=== PATIENT | female | born 1950 | race Caucasian/White ===

== ENCOUNTER 2018-06-28 14:30 | Outpatient (CLI) | payer MEDICARE ==
--- NOTE | 2018-06-28 17:05 | MRI ---
NONCONTRAST MRI LUMBAR SPINE: 06/28/18 HISTORY: Lumbar radiculopathy, left sided sciatica. Left hip and low back pain for quite some time now. COMPARISON: None available. There are extrarenal pelves seen bilaterally. Retroperitoneal structures otherwise demonstrate a wilfred sly normal MRI appearance. The conus medullaris is normal in appearance and terminates at the T12-L1 level. Scattered Schmorl's nodes are seen in the lower thoracic and visualized upper lumbar spine. L1-2 level: There is no significant disc bulge or disc herniation. Central spinal canal and neural fo ramina are patent. L2-3 level: There is loss of intervertebral disc height. There is a broad based disc osteophyte compl ex and mild facet hypertrophic changes with ligamentous thickening. There is resultant mild narrowing of the central spinal canal with mild right and minimal left sided neural foraminal narrowing. L3-4 level: There is a mild disc osteophyte complex. There is ligamentous thickening and facet hypert rophic changes. Resultant mild narrowing of the central spinal canal. The neural foramina at this lev el are patent. There are facet degenerative changes at this level. L4-5 level: There is loss of intervertebral disc height. There is a broad based disc osteophyte compl ex present. Facet hypertrophic changes and ligamentous thickening are noted. There is mild narrowing of the central spinal canal with mild bilateral neural foraminal narrowing. L5-S1 level: There is no disc bulge or disc herniation. The central spinal canal and neural foramina are patent at this level. IMPRESSION: Mild multilevel degenerative changes of the lumbar spine. POS: KRISTY
== END 2018-06-28 14:31 | disposition home or self-care (01) ==
LOC: SCSMRI 14:30
PROVIDERS: ATTEND Orthopaedic Surgery
DX: M47.26 Other spondylosis with radiculopathy, lumbar region (principal); M54.32 Sciatica, left side
CPT/HCPCS: 72148

== ENCOUNTER 2019-08-01 15:15 | Outpatient (CLI) | payer MEDICARE ==
--- NOTE | 2019-08-01 15:37 | MMO ---
Bilateral MAMMO Bilat Screen [facility]. CLINICAL HISTORY: Patient is 69 years old and is seen for screening. The patient has no family history of breast cancer. The patient has no personal history of cancer. VIEWS: The views performed were: bilateral craniocaudal with tomosynthesis and bilateral mediolateral oblique with tomosynthesis. FILMS COMPARED: The present examination has been compared to prior imaging studies performed at [facility] on 05/03/2016, and at [facility] on 05/22/2007, 05/27/2008 and 06/19/2011. This study has been interpreted with the assistance of computer-aided detection. MAMMOGRAM FINDINGS: There are scattered fibroglandular densities. There are stable benign appearing calcifications seen in both breasts. There are also vascular calcifications. There are no suspicious masses, suspicious calcifications, or new areas of architectural distortion. IMPRESSION: THERE IS NO MAMMOGRAPHIC EVIDENCE OF MALIGNANCY. A ROUTINE FOLLOW-UP MAMMOGRAM IN 1 YEAR IS RECOMMENDED. THE RESULTS OF THIS EXAM WERE SENT TO THE PATIENT. ACR BI-RADS Category 2 - Benign finding MAMMOGRAPHY NOTE: 1. A negative mammogram report should not delay a biopsy if a dominant of clinically suspicious mass is present. 2. Approximately 10% to 15% of breast cancers are not detected by mammography. 3. Adenosis and dense breasts may obscure an underlying neoplasm. Reported by: DIOR BERRY MD Electonically Signed: [id number]
== END 2019-08-01 15:16 | disposition home or self-care (01) ==
LOC: BICMAMMO 15:15
PROVIDERS: ATTEND Nurse Practitioner Family
DX: Z12.31 Encounter for screening mammogram for malignant neoplasm of breast (principal)
CPT/HCPCS: 77063; 77067

== ENCOUNTER 2020-07-20 13:00 | Outpatient (CLI) | payer MEDICARE ==
--- NOTE | 2020-07-20 14:09 | MRI ---
MRI lumbar spine noncontrast: HISTORY: Lumbar radiculopathy. Degenerative disc disease. Back pain after fall from flower bed 3 years ago. COMPARISON: 06/28/2018 FINDINGS: Appropriate T1 marrow signal intensity of the lumbar vertebra. Lumbar spine vertebral body heights ar e maintained. No fracture. Stable chronic Schmorl's nodes along the superior endplate and inferior endplate of L1 and L2. No significant STIR hyperintensity to suggest ligamentous injury or vertebral body edema. There is edematous change involving bilateral facet joints at L4-L5. The degree of edema has progressed since the previous exam. Appropriate signal intensity of the visualized paraspinal muscles and solid organs. Conus medullaris terminates at the mid T12 level. T12-L1:Adequate disc hydration. No posterior disc abnormality. No significant central canal stenosis or significant neural foraminal narrowing. L1-L2:Adequate disc hydration. No posterior disc abnormality. No significant central canal stenosis o r significant neural foraminal narrowing. L2-L3:Disc desiccation with severe loss of disc space height. Broad-based disc bulge, ligamentum flav um thickening and facet hypertrophy result in mild central canal stenosis. Mild right neural foraminal narrowing. Patent left neural foramen. L3-L4:Adequate disc hydration. No significant loss of disc space height. Broad-based disc bulge, liga mentum flavum thickening and facet hypertrophy result in mild central canal stenosis. Patent bilateral neural foramina. L4-L5:Disc desiccation with moderate loss of disc space height. Broad-based disc bulge, ligamentum fl avum thickening and facet hypertrophy result in mild central canal stenosis. Mild bilateral neural foraminal narrowing. L5-S1:Adequate disc hydration. No posterior disc abnormality. No significant central canal stenosis o r significant neural foraminal narrowing. IMPRESSION: 1. No fracture. 2. Redemonstration of multilevel degenerative changes of the lumbar spine. Transcribed Date/Time: 07/20/2020 2:24 PM
== END 2020-07-20 13:01 | disposition home or self-care (01) ==
LOC: SCSMRI 13:00
PROVIDERS: ATTEND Neurological Surgery
DX: M51.16 Intervertebral disc disorders with radiculopathy, lumbar region (principal); M47.26 Other spondylosis with radiculopathy, lumbar region
CPT/HCPCS: 72148

== ENCOUNTER 2020-09-08 10:46 | Outpatient (CLI) | payer MEDICARE ==
--- NOTE | 2020-09-08 11:37 | BD ---
EXAM: DEXA bone density examination HISTORY: 70-year-old postmenopausal female for screening COMPARISON: None FINDINGS: L1--bone mineral density 1.023 g/sq cm; T score 0.3 L2--bone mineral density 1.198 g/sq cm; T score 1.5 L3--bone mineral density 1.344 g/sq cm; T score 2.4 L4--bone mineral density 1.224 g/sq cm; T score 1.5 Total L1-L4--bone mineral density 1.207 g/sq cm; T score 1.5 Left femoral neck--bone mineral density0.744; T score -0.9 Total proximal left femur--bone mineral density 0.889; T score -0.4 IMPRESSION: Normal bone density.
--- NOTE | 2020-09-08 13:35 | MMO ---
Bilateral MAMMO Bilat Screen [facility]. CLINICAL HISTORY: Patient is 70 years old and is seen for screening. The patient has no family history of breast cancer. The patient has no personal history of cancer. VIEWS: The views performed were: bilateral craniocaudal with tomosynthesis and bilateral mediolateral oblique with tomosynthesis. FILMS COMPARED: The present examination has been compared to prior imaging studies performed at [facility] on 05/03/2016 and 08/01/2019, and at [facility] on 05/27/2008 and 06/19/2011. This study has been interpreted with the assistance of computer-aided detection. MAMMOGRAM FINDINGS: There are scattered fibroglandular densities. There are no suspicious masses, suspicious calcifications, or new areas of architectural distortion. IMPRESSION: THERE IS NO MAMMOGRAPHIC EVIDENCE OF MALIGNANCY. A ROUTINE FOLLOW-UP MAMMOGRAM IN 1 YEAR IS RECOMMENDED. THE RESULTS OF THIS EXAM WERE SENT TO THE PATIENT. ACR BI-RADS Category 1 - Negative MAMMOGRAPHY NOTE: 1. A negative mammogram report should not delay a biopsy if a dominant of clinically suspicious mass is present. 2. Approximately 10% to 15% of breast cancers are not detected by mammography. 3. Adenosis and dense breasts may obscure an underlying neoplasm. Reported by: VICENTA LEZAMA MD Electonically Signed: [id number]
== END 2020-09-08 10:47 | disposition home or self-care (01) ==
LOC: BICMAMMO 10:46
PROVIDERS: ATTEND Nurse Practitioner Family
DX: Z12.31 Encounter for screening mammogram for malignant neoplasm of breast (principal); Z13.820 Encounter for screening for osteoporosis
CPT/HCPCS: 77063; 77067; 77080

== ENCOUNTER 2021-09-29 12:06 | Outpatient (CLI) | payer MEDICARE | END 2021-09-29 12:07 | disposition home or self-care (01) | LOC: BICMAMMO 12:06 | PROVIDERS: ATTEND Nurse Practitioner Family | DX: Z12.31 Encounter for screening mammogram for malignant neoplasm of breast (principal) | CPT/HCPCS: 77063; 77067 ==

== ENCOUNTER 2022-10-10 11:15 | Outpatient (CLI) | payer MEDICARE | END 2022-10-10 11:16 | disposition home or self-care (01) | LOC: BICMAMMO 11:15 | PROVIDERS: ATTEND Nurse Practitioner Family | DX: Z12.31 Encounter for screening mammogram for malignant neoplasm of breast (principal) | CPT/HCPCS: 77063; 77067 ==

== ENCOUNTER 2022-12-13 11:51 | Outpatient (CLI) | payer MEDICARE ==
[~2022-12-13 11:51] MED LIST: Magnevist 469MG/ML 20 ML VIAL ONE
== END 2022-12-13 11:52 | disposition home or self-care (01) ==
LOC: MRI 11:51
PROVIDERS: ATTEND Family Medicine
DX: R20.0 Anesthesia of skin (principal); G93.89 Other specified disorders of brain
CPT/HCPCS: 70553; A9579